=== PATIENT | male | born 1965 | race Caucasian/White ===

== ENCOUNTER 2021-12-03 05:27 | Day surgery (SDC) | payer OTHER ==
[~2021-12-03] VITALS: Ht 183 cm; Wt 119.0 kg
[~2021-12-03 05:27] MED LIST: ALLOPURINOL 30300 MG PO; AMLODIPINE BESY10 MG PO; CENTRUM SILVER1 EAC1 PO; DICLOFENAC SODI75 MG PO; FISH OIL 1,0001 EAC4 PO; GLUCOSAMINE &1 EACH PO; HYDROCHLOROTH12.5 MG PO; LIVALO2 MG PO; METFORMIN HCL500 M3 PO; NEURONTIN300 MG PO; VITAMIN A2400 MCG PO; VITAMIN B-650 MG PO; VITAMIN E180 MG PO
[2021-12-03] MEDS ORDERED: ASPIRIN81 MG PO (14:31)
[2021-12-04 06:27] LABS: BASOPHIL 0.2 % (0-2); EOSINOPHIL 0.2 % (0-5); HCT 40.4 % (42.0-52.0); HGB 13.6 g/dl (13.2-18.0); LYMPHOCYTE 17.6 % (15-48); MCH 33.5 pg (25.0-31.0); MCHC 33.7 g/dL (32.0-36.0); MCV 99.5 fL (78.0-100.0); MONOCYTE 11.3 % (0-12); MPV 10.5 fL (6.0-9.5); NEUTROPHIL 70.1 % (41-80); NRBC 0; PLT 168 K/uL (150-400); RBC 4.06 M/uL (4.70-6.00); RDW 12.3 % (11.5-14.0); WBC 12.3 K/uL (4.0-10.5)
[2021-12-04 06:28] LABS: BUN/CREAT RATIO (CALC) 20.3 RATIO; CREATININE 1.18 mg/dL (0.67-1.17); POTASSIUM 4.3 mmol/L (3.5-5.1)
[2021-12-04] MEDS ORDERED: FEOSOL325 MG PO (08:42)
== END 2021-12-04 11:40 | disposition home or self-care (01) ==
LOC: FAS 05:27 → FMS 05:27 → FAS 07:00 → FMS 08:29 → FAS 12-04 11:40
PROVIDERS: Orthopaedic Surgery
DX: M17.12 Unilateral primary osteoarthritis, left knee (principal); E11.9 Type 2 diabetes mellitus without complications; I10 Essential (primary) hypertension; E78.5 Hyperlipidemia, unspecified; Z88.5 Allergy status to narcotic agent; Z79.84 Long term (current) use of oral hypoglycemic drugs; Z79.899 Other long term (current) drug therapy
CPT/HCPCS: 36415; 73560; 80048; 85025; 86850; 86900; 86901; 94010; 94760; 97162; 97165; 97530-GP; C1713; C1776; J0171; J0697; J1100; J1170; J1885; J2250; J2370; J2405; J2704; J2795; J3010; J7120